=== PATIENT | male | born 1985 | race African-American/Black ===

== ENCOUNTER 2019-12-05 17:53 | Emergency (ER) | payer MEDICAID, OTHER ==
[~2019-12-05] VITALS: Ht 175.3 cm; Wt 79.5 kg
[2019-12-05 18:14] VITALS: BP 142/94
[2019-12-05] MEDS ORDERED: albuterol (18:14)
[2019-12-05] MEDS ORDERED: KETOROLAC 60MG/2ML VIAL IM ONE (20:45)
== END 2019-12-06 04:47 | disposition left against medical advice (07) ==
LOC: ER 17:53
DX: S80.02XA Contusion of left knee, initial encounter (principal); S69.82XA Other specified injuries of left wrist, hand and finger(s), initial encounter; V49.50XA Passenger injured in collision with unspecified motor vehicles in traffic accident, initial encounter; Y93.89 Activity, other specified; Y92.410 Unspecified street and highway as the place of occurrence of the external cause
CPT/HCPCS: 99281

== ENCOUNTER 2019-12-06 08:56 | Emergency (ER) | payer MEDICAID, OTHER ==
[~2019-12-06] VITALS: Ht 175.3 cm; Wt 79.5 kg
[~2019-12-06 08:56] MED LIST: albuterol
[2019-12-06 09:15] VITALS: BP 147/87
[2019-12-06] MEDS ORDERED: ACETAMINOPHEN 325MG TABLET PO ONE (09:45)
== END 2019-12-06 11:19 | disposition home or self-care (01) ==
LOC: ER 08:56
DX: S52.612A Displaced fracture of left ulna styloid process, initial encounter for closed fracture (principal); S52.592A Other fractures of lower end of left radius, initial encounter for closed fracture; M25.562 Pain in left knee; M25.561 Pain in right knee; V49.50XA Passenger injured in collision with unspecified motor vehicles in traffic accident, initial encounter; Y93.89 Activity, other specified; Y92.410 Unspecified street and highway as the place of occurrence of the external cause
CPT/HCPCS: 29125; 71045; 73100; 73560; 99284

== ENCOUNTER 2020-09-11 11:39 | Emergency (ER) | payer MEDICAID ==
[~2020-09-11] VITALS: Ht 175.3 cm; Wt 82.0 kg
[2020-09-11 11:46] VITALS: BP 150/96
[2020-09-11] MEDS ORDERED: ACETAMINOPHEN 500MG TABLET PO ONE (12:30)
== END 2020-09-11 13:11 | disposition home or self-care (01) ==
LOC: ER 11:39
DX: M23.8X2 Other internal derangements of left knee (principal)
CPT/HCPCS: 99282

== ENCOUNTER 2021-01-20 10:33 | Emergency (ER) | payer MEDICAID, OTHER ==
[~2021-01-20] VITALS: Ht 175.3 cm; Wt 82.0 kg
[2021-01-20 11:15] VITALS: BP 151/98
[2021-01-20] MEDS ORDERED: ONDANSETRON 4MG ODT PO ONE (11:30)
[2021-01-20] MEDS ORDERED: ONDA4TAB5 MT (11:39)
== END 2021-01-20 11:58 | disposition home or self-care (01) ==
LOC: ER 10:33
DX: R11.2 Nausea with vomiting, unspecified (principal); J45.909 Unspecified asthma, uncomplicated; Z88.6 Allergy status to analgesic agent
CPT/HCPCS: 99283; Q0162